=== PATIENT | male | born 1930 | race Caucasian/White ===

== ENCOUNTER 2016-05-17 12:06 | Observation (INO) | payer MEDICARE ==
[2016-05-17] VITALS (7 sets, daily range): BP systolic 123–165; BP diastolic 57–81; PULSE 79–84; RESP 11–18; O2SAT 94–98
[~2016-05-17] VITALS: Ht 172.7 cm; Wt 88.0 kg
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
[2016-05-17] MEDS ORDERED: Ondansetron 2 mg/mL 2 mL Inj ONE (12:19)
[2016-05-17 12:33] LABS: BASOPHILS % (AUTO) 0.9 % (0-3); EOSINOPHILS % (AUTO) 4.8 % (0-5); MONOCYTES % (AUTO) 10.9 % (4-12); Mean Corpuscular Hemoglobin 31.5 pg (27.0-35.0); Mean Corpuscular Volume 92.8 fL (81-100); NEUTROPHILS % (AUTO) 49.9 % (40-74); Platelet Count 153 bil/L (150-400)
[2016-05-17 12:48] LABS: INR 0.98 ratio
[2016-05-17 12:55] LABS: TROPONIN T 0.01 ug/L (0.0-0.011)
--- NOTE | 2016-05-17 13:05 | DRSVH ---
PROCEDURE: CT BRAIN WITHOUT CONTRAST ([id number]) INDICATIONS: syncope TECHNIQUE: Noncontrast 4.5 mm thick angled axial sections acquired from the foramen magnum to the vertex, with c oronal reformats. COMPARISON: [facility], CT, BRAIN W/O CONTRAST, 08/14/2014, 15:00. FINDINGS: Image quality: Partially degraded by motion artifact. CSF spaces: Basal cisterns are patent. No extra-axial fluid collections. The ventricles are symmet elvis in size and shape. Brain: No intracranial bleeds or masses. There is cerebral volume loss for age, with resultant vent ricular and sulcal prominence. New small chronic right cerebellar infarct. There are periventricular and deep white matter chronic small vessel ischemic changes. There is intracranial internal carotid artery atherosclerosis. Skull and face: Calvarium and visualized facial bones appear intact, without suspicious lesions. Sinuses: Visualized sinuses and mastoids are clear. IMPRESSION: 1. No acute intracranial abnormality. No explanation for syncope. Dictated by: Man Huang M.D. on 05/17/2016 at 13:03 Approved by: Man Huang M.D. on 05/17/2016 at 13:04
[2016-05-17 13:06] LABS: Magnesium 2.1 mg/dL (1.6-2.6)
--- NOTE | 2016-05-17 14:24 | DRSVH ---
PROCEDURE: X-RAY CHEST ONE VIEW, PORTABLE ([id number]) INDICATIONS: DIZZY TECHNIQUE: One view of the chest was acquired. COMPARISON: None. FINDINGS: Surgical changes and devices: Post median sternotomy. Lungs and pleura: No pleural effusions or pneumothorax. Lungs are clear. Lung volumes are increase d with flattening of the hemidiaphragms suggesting COPD. Mediastinum: Mediastinal contours appear normal. Heart size is normal. Bones and chest wall: No suspicious bony lesions. Overlying soft tissues appear unremarkable. IMPRESSION: No acute cardiopulmonary disease. Dictated by: Scott Berger [facility] Interpreted: Kristina Nunez MD on 05/17/2016 at 14:23 Transcribed by: BOB on 05/17/2016 at 14:24 Approved by: Kristina Nunez MD, PhD on 05/17/2016 at 17:02
[2016-05-17] MEDS ORDERED: FUR20 PO (15:21)
[2016-05-17] MEDS ORDERED: TAMS0.4C29 PO (15:21)
[2016-05-17] MEDS ORDERED: ALEN70TA46 PO (15:21)
[2016-05-17] MEDS ORDERED: METO50TA3 PO (15:21)
[2016-05-17] MEDS ORDERED: ATOR20TA65 PO (15:21)
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
--- NOTE | 2016-05-17 18:09 | DRSVH ---
PROCEDURE: US BILATERAL DUPLEX DOPPLER IMAGING OF THE CAROTIDS ([id number]) INDICATIONS: syncope TECHNIQUE: Color and pulse Doppler interrogation was performed of both carotid systems, with image documentation and velocity measurements. COMPARISON: [facility], US, CAROTID DUPLEX DOPPLER BILAT, 05/19/2014, 12:32. FINDINGS: All stenosis calculations are based on NASCET criteria. Right side: Brachial blood pressure: 139/76 mm Hg. Common Carotid Artery(Distal) PSV: 76.40 cm/s Internal Carotid Artery PSV- Proximal: 59 cm/s, 65.40 cm/s Mid-lon.40 cm/s Distal: 68.30 cm/s EDV - Proximal: 16.80 cm/s, 18.50 cm/s Mid-lon.30 cm/s Distal: 22.60 cm/s External Carotid Artery(Proximal) PSV: 81 cm/s ICA/CCA PSV ratio: 0.9 Banegas scale imaging description: Moderate atherosclerotic plaquing Percent internal carotid artery stenosis: Less than 50% diameter stenosis. Vertebral artery: Flow direction is antegrade. Left side: Brachial blood pressure: 123/81 mm Hg. Common Carotid Artery(Distal) PSV: 63.80 cm/s Internal Carotid Artery PSV - Proximal: 77.10 cm/s Mid-lon.80 cm/s Distal: 83.80 cm/s EDV - Proximal: 20.10 cm/s Mid-lon.60 cm/s Distal: 29.80 cm/s External Carotid Artery(Proximal) PSV: 75.60 cm/s ICA/CCA PSV ratio: 1.3 Banegas scale imaging description: Moderate atherosclerotic plaquing at the origin of the internal carot id Percent internal carotid artery stenosis: Less than 50% diameter stenosis. Vertebral artery: Flow direction is antegrade. IMPRESSION: There is less than 50% diameter stenosis at the origin of both internal carotid arteries. This is unchanged since the previous study. Dictated by: Mikie Irving M.D. on 05/17/2016 at 18:05 Approved by: Mikie Irving M.D. on 05/17/2016 at 18:08
--- NOTE | 2016-05-17 18:50 | NUR ---
Arrival to Floor Patient arrived to floor from ED. Vital signs stable, patient alert and oriented with no subjective complaints of pain, nausea, shortness of breath, syncope or other difficulties. Care is ongoing.
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
[2016-05-18] VITALS (14 sets, daily range): BP systolic 102–146; BP diastolic 61–72; PULSE 67–106; RESP 16–20; O2SAT 95–98
--- NOTE | 2016-05-18 06:24 | NUR ---
NOC- PT has been sleeping off and on over noc. Denies any pain. Denies any nausea, dizziness, weakness. UP to the BR independently and voiding in urinal. V/S WNL. NSR on tele. Will likely d/c today.
[2016-05-18 07:11] LABS: BASOPHILS % (AUTO) 0.7 % (0-3); EOSINOPHILS % (AUTO) 4.5 % (0-5); MONOCYTES % (AUTO) 11.2 % (4-12); Mean Corpuscular Hemoglobin 31.1 pg (27.0-35.0); Mean Corpuscular Volume 93.2 fL (81-100); NEUTROPHILS % (AUTO) 58.6 % (40-74); Platelet Count 133 bil/L (150-400)
[2016-05-18 07:39] LABS: Magnesium 2.2 mg/dL (1.6-2.6); Phosphorus 3.2 mg/dL (2.5-4.9)
--- NOTE | 2016-05-18 10:42 | NUR ---
Case Management: MEADE given and explained to pt at 10:25. Renate JOHNSON,RN
--- NOTE | 2016-05-18 11:11 | DRSVH ---
[facility] [address] [place] [address] Echocardiogram Report Name: CHARANJIT GUPTA BStudy Date: 05/18/2016 Height: 68 in Hospital Exam Location: [facility] Weight: 198 lb Gender: Male BSA: 2.0 m2 : 1930 Age: 86 yrs BP: 126/65 mmHg Reason For Study: CAD, SYNCOPE History: mitral valve repair, stent Ordering Physician: Performed By: Kavita Bender Referring Physician: Walt Otoole Interpretation Summary 1) Normal left ventricular thickness, size, wall motion, and systolic function (EF 60-65%). 2) Normal right ventricular size and function. 3) Nodular calcification of the right coronary cusp with severe reduced excursion. The left coronary cusp and non-coronary cusp have normal function. 4) Mild to moderate aortic regurgitation present and very mild aortic stenosis present (mean gradient 15mmHg, valve are 2.1cm2). 5) Mitral valve is calcific with mild inflow gradient 6) Mild to moderate eccentric tricuspid regurgitation. 7) Normal pulmonary artery pressures. 8) No prior Echo available for comparison. Procedure: A two-dimensional transthoracic echocardiogram with color flow and Doppler was performed. The study quality was technically adequate. Comparison is made with the echocardiogram of 12/02/2007. Left Ventricle: The left ventricular cavity is small. Left ventricular wall thickness is borderline increased. The LVOT diameter is 2.2 cm. The LVOT velocity is 1.3 m/s. The left ventricular outflow velocity with valsalva is 1.2 m/s. The ejection fraction is estimated to be 60-65%. Diastolic function could not be accurately assessed due to confounding valvular disease. Right Ventricle: The right ventricle is normal in size and function. Atria: The left atrium is severely dilated. Right atrial size is normal. There is no Doppler evidence for an interatrial shunt. Mitral Valve: There is systolic anterior motion of the chordal apparatus. The mitral valve chordae are thickened and/or calcified. An annuloplasty ring is noted in the mitral position. The mitral valve mean gradient is 7.58 mmHg. There is mild mitral stenosis. There is mild mitral regurgitation. Aortic Valve: The aortic valve is trileaflet. Nodular calcification of the right coronary cusp with severe reduced excursion. The left coronary cusp and non-coronary cusp have normal function. There is mild aortic stenosis. The aortic valve mean gradient is 15 mmHg. The calculated aortic valve area is 2.1 cm2. There is mild to moderate aortic regurgitation. Tricuspid Valve: The tricuspid valve leaflets are thin and pliable. There is mild to moderate tricuspid regurgitation. The TR jet is eccentric. The right ventricular systolic pressure is estimated at 33 mmHg assuming a right atrial pressure of 3 mm Hg. Pulmonic Valve: The pulmonic valve leaflets are thin and pliable; valve motion is normal. There is trace pulmonic regurgitation. Great Vessels: The aortic root is normal size. The ascending aorta is at the upper limits of normal in size. The aortic arch is at the upper limits of normal in size. The IVC is of normal diameter and collapses greater than 50% with a sniff. This suggests a low right atrial pressure of 3 mm Hg. Pericardium/ Pleura There is no pericardial effusion. MMode/2D Measurements & Calculations LVIDd: 3.9 cm RA long axis LVOT diam: 2.2 cm LVIDs: 2.3 cm LA A2 area: 32.8 cm AoV Opening FS: 41.3 % LA A4 area: 24.8 cm RA area IVSd: 1.1 cm LA length (vol) Ao root diam LVPWd: 0.95 cm : 18.5 cm LA vol: 111.5 ml RA vol Aortic Jxn: 2.8 cm LA vol index : 46.2 ml asc Aorta Diam RA : 22.7 mm2 Ao Arch Diam (Prox IVC diam: 1.9 cm Trans): 3.1 cm LV oliveros. diameter/BSA LV sys. diameter/BSA RVD1 (basal) TAPSE: 1.6 cm (cm/m^2): 1.9 (cm/m^2): 1.1 Doppler Measurements & Calculations Ao V2 max MV E max torres TR max torres MV V2 mean : 261.6 cm/sec : 185.2 cm/sec : 270.2 cm/sec : 128.9 cm/sec Ao max P.4 mmHg TR max PG MV mean PG Ao mean P.4 mmHg MVA(VTI): 2.9 cm : 29.2 mmHg LVOT Max Torres MR ERO: 0.30 cm2 PA V2 max MV V2 VTI : 132.4 cm/sec : 124.9 cm/sec : 35.7 cm PA mean PG ROSLYN(I,D): 2.1 cm sev ratio: 0.56 PA Accel Time AI P1/2t: 478.7 msec AI dec slope : 274.6 cm/s2c Ao V2 mean LV V1 max PG MR flow rate PA V2 mean : 183.3 cm/sec : 172.9 cm3/sec : 85.7 cm/sec Ao V2 VTI: 50.1 cm LV V1 VTI: 27.9 cmMR PISA radius ROSLYN(V,D): 1.9 cm2 ROSLYN indexed to BSA (cm^2/m^2): 1.0 Reading Physician:11:10 AM
--- NOTE | 2016-05-18 11:30 | NUR ---
ACTIVITY Patient denies pain. He has been NPO pending cardiology consult. Denies nausea. No emesis noted. Denies SOB. Patient has been up and ambulating independently in the room. Gait is steady. Denies lightheadedness. Patient is on remote tele. Per telecom network manager patient is on sinus rhythm; HR-90 with a 1st degree AVB and IVCD. Per Dr. Dykes patient may resume his diet at this time and he will be in this afternoon for the consult. Dr. Lamb made aware. Care continues.
--- NOTE | 2016-05-18 12:37 | NUR ---
Social Work- Initial Assessment/Readiness for Discharge Data: See Initial Assessment. Pt is a 86 year old male admitted 05/17/16 for syncopal event per H&P. Pt's insurance is [employer]. Pt's PCP is Walt Otoole DO. GISELE met with pt and daughter Seda [phone] at bedside regarding discharge plan, SW role explained. Pt alert and oriented x3. Pt resides on [address] alone where he remains independent with his ADLs. Pt uses no DME and drives. Pt has a HH history in 2015, but was unsure which company. Pt was a pt at [facility] and [facility] in 2014. Pt has no LTC or VA benefits. Pt's DPOA is daughter Seda [phone], DPOA on file. Pt to discharge home with daughter to transport via POV. SW provided phone number and plan on whiteboard. No anticipated discharge needs. SW will continue to follow. Assessment: Pt who [place] independent [place]. Plan: Pt to discharge home with daughter to transport via POV. No anticipated discharge needs. SW will continue to follow. [place] Addendum: 05/18/16 at 1244 by VENECIA SHELTON Amended: Links added.
--- NOTE | 2016-05-18 17:30 | NUR ---
MD NOTIFICATION Per television parts tester patient had a missed beat, non-conductive PAC's, ? 2nd degree AVB. Patient denies chest pain/lightheadedness. Dr. Lamb paged and made aware. Dr. Dykes made aware. Dr. Dykes reviewed tele strips and was here for the cardiology consult. No new orders at this time. Patient continues to be on tele. Care continues.
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
[2016-05-19] VITALS (9 sets, daily range): BP systolic 106–131; BP diastolic 70–81; PULSE 73–103; RESP 16–20; O2SAT 92–97
--- NOTE | 2016-05-19 01:53 | NUR ---
Mobility Pt.denies vertigo and is up ind. with steady gait.VSS.Tele=IVCD with 1st degree block.Denies pain/nausea.Sleeping soundly at this time and resting comfortably.Will cont. to monitor.
[2016-05-19 06:16] LABS: EOSINOPHILS % (AUTO) 6.3 % (0-5); Mean Corpuscular Hemoglobin 31.3 pg (27.0-35.0); Mean Corpuscular Volume 93.1 fL (81-100); NEUTROPHILS % (AUTO) 49.3 % (40-74); Platelet Count 136 bil/L (150-400)
[2016-05-19 06:48] LABS: Magnesium 2.2 mg/dL (1.6-2.6); Phosphorus 3.1 mg/dL (2.5-4.9)
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
--- NOTE | 2016-05-19 15:59 | NUR ---
Meds/Diet Per RN report at start of shift, stated that pt to undergo possible pacemaker placement. Spoke with Dr. Lamb outside of pt room and pt was placed NPO and Lovenox withheld until known by Cardiology if pt was or was not going to have procedure. Once seen by Cardiology and pt not to have procedure, pt resumed diet orders and received AM medications. No acute changes thus far this shift. No c/o dizziness/light-headedness. Pt visiting with family in room. Care continues.
[2016-05-20 00:19] VITALS: BP 134/83; PULSE 91; RESP 18; O2SAT 98
--- NOTE | 2016-05-20 01:34 | NUR ---
Mobility Pt. up ind. and ind. with ADLs.VSS.Denies vertigo,pain/nausea.C/o being bored otherwise resting comfortably.Sleeping soundly at this time.Will cont. to monitor.
[2016-05-20 05:13] VITALS: BP 119/75; PULSE 92; RESP 20; O2SAT 95
[2016-05-20 08:58] VITALS: PULSE 100
[2016-05-20 10:48] VITALS: BP 135/77; PULSE 99; RESP 18; O2SAT 97
[2016-05-20 14:45] VITALS: BP 148/75; PULSE 101; RESP 19; O2SAT 97
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
== END 2016-05-20 16:35 | disposition home or self-care (01) ==
LOC: EDBD 12:06 → EDUNIT# 12:06 → SED 12:06 → OSC 15:27
PROVIDERS: ADMIT Internal Medicine; ATTEND Internal Medicine
DX: R55 Syncope and collapse (principal); I25.10 Atherosclerotic heart disease of native coronary artery without angina pectoris; I50.32 Chronic diastolic (congestive) heart failure; G47.33 Obstructive sleep apnea (adult) (pediatric); E78.5 Hyperlipidemia, unspecified; I10 Essential (primary) hypertension; M19.90 Unspecified osteoarthritis, unspecified site; V47.5XXA Car driver injured in collision with fixed or stationary object in traffic accident, initial encounter; Y93.89 Activity, other specified; Y92.410 Unspecified street and highway as the place of occurrence of the external cause; Y99.8 Other external cause status; Z79.82 Long term (current) use of aspirin; Z95.5 Presence of coronary angioplasty implant and graft; Z95.1 Presence of aortocoronary bypass graft; Z66 Do not resuscitate; Z85.46 Personal history of malignant neoplasm of prostate; Z98.890 Other specified postprocedural states; I35.8 Other nonrheumatic aortic valve disorders; I35.1 Nonrheumatic aortic (valve) insufficiency; I44.1 Atrioventricular block, second degree
CPT/HCPCS: 36415; 70450; 70549; 70553; 71010; 80053; 83735; 84100; 84484; 85025; 85610; 93005; 93880; 96374; 99285; A9585; C8929; G0378; J1650; J2405